=== PATIENT | female | born 1975 | race Caucasian/White ===

== ENCOUNTER 2024-06-20 21:48 | Emergency (ER) | payer OTHER ==
[~2024-06-20] VITALS: Ht 162.6 cm; Wt 111.4 kg
[2024-06-20 22:27] VITALS: BP 166/91; PULSE 84; RESP 22; TEMP 98.4; O2SAT 100
[2024-06-21] MEDS ORDERED: METH-659 PO (00:35)
[2024-06-21] MEDS ORDERED: ACET-2080 PO (00:35)
[2024-06-21] MEDS ORDERED: IBUP-1554 PO (00:35)
[2024-06-21] MEDS: KETOROLAC TROMETHAMINE 60 MG/2 ML VIAL IM ONE (01:22)
[2024-06-21] MEDS: ACETAMINOPHEN/CODEINE 300-30 MG TABLET PO ONE (01:22)
[2024-06-21] MEDS: METHOCARBAMOL 500 MG TABLET PO ONE (01:22)
== END 2024-06-21 01:26 | disposition home or self-care (01) ==
LOC: EMS 21:50
DX: S29.012A Strain of muscle and tendon of back wall of thorax, initial encounter (principal); X58.XXXA Exposure to other specified factors, initial encounter; Y93.89 Activity, other specified; Y92.89 Other specified places as the place of occurrence of the external cause; Y99.8 Other external cause status
CPT/HCPCS: 99283; 96372; J1885